=== PATIENT | female | born 1980 | race African-American/Black ===

== ENCOUNTER 2017-08-31 09:50 | Emergency (ER) | payer SELFPAY ==
[2017-08-31] MEDS ORDERED: Ketorolac 60 MG/2 ML SDV IM ONE (11:17)
--- NOTE | 2017-08-31 12:07 | EDM.PDOC ---
ED HPI GENERAL MEDICAL PROBLEM - General Chief Complaint: Back Pain or Injury Stated Complaint: [facility] Time Seen by Provider: 08/31/17 11:05 Source of Information: Reports: Patient History Limitations: Reports: No Limitations - History of Present Illness INITIAL COMMENTS - FREE TEXT/NARRATIVE: 36 year old female arrives via [place] ambulance service for evaluation and treatment of low back pain. Patient reports she has had low back pain for the last 3 months. She was seen in the [facility] clinic yesterday by Hanh Orosco. No imaging was done. Reports she was prescribe muscle relaxers and something for pain. She was also sent up with PT. Reports she tried the muscle relaxers and the pain medications, last took a medication around 0500. Patient also tried heat last night. 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 She was at work today walking around when she experienced worsening low back pain and numbness in her right foot. She states she could not sit due to the pain. No recent trauma to her back. No recent fevers. No saddle anesthesia, bowel or bladder incontinence. No pain to the left low back or numbness or tingling in the left leg. Patient reports a past medical history of bone spurs in her right foot. States she has never had anything like this before. Patient feels the medications are causing the numbness in the right foot. Right Back Pain Score (Numeric/FACES): 7 - Related Data Allergies Allergy/AdvReac Type Severity Reaction Status Date / Time No Known Allergies Allergy Verified 08/31/17 10:01 Home Meds: Home Meds Nortrel Control 1 tab PO DAILY 08/31/17 [History] Prednisone [IJD: predniSONE] 40 mg PO WITHBREAKFAST #10 tab 08/31/17 [Rx] Past Medical History - Past Health History Medical/Surgical History: Denies Medical/Surgical History Social & Family History - Family History Family Medical History: Noncontributory - Tobacco Use Smoking Status *Q: Never Smoker - Recreational Drug Use Recreational Drug Use: No ED ROS GENERAL - Review of Systems Review Of Systems: See Below Constitutional: Denies: Fever GI/Abdominal: Denies: Stool Incontinence : Denies: Incontinence Musculoskeletal: Reports: Back Pain (low back), Leg Pain (right) Neurological: Reports: Numbness (right foot), Tingling (right leg) ED EXAM,LOWER BACK PAIN/INJURY - Physical Exam Exam: See Below Exam Limited By: No Limitations General Appearance: Alert, WD/WN, No Apparent Distress, Obese Eye Exam: Bilateral Eye: Normal Inspection Ears: Normal External Exam Respiratory/Chest: No Respiratory Distress, Lungs Clear, Normal Breath Sounds Cardiovascular: Normal Peripheral Pulses, Regular Rate, Rhythm, No Murmur Back Exam: Normal Inspection, Decreased Range of Motion (unable to rotate, flex or extend at waiste due to pain), Paraspinal Tenderness (right sciatic notch) Extremities: Normal Inspection, Normal Range of Motion, Non-Tender Neurological: Alert, Normal Mood/Affect, Normal Dorsiflexion, Normal Plantar Flexion, Normal Gait, Straight Leg Raise (L) (causes pain to the low back), Straight Leg Raise (R) (causes pain to the low back). No: Saddle Anesthesia Psychiatric: Normal Affect, Normal Mood Skin Exam: Warm, Dry, Normal Color Course - Vital Signs Last Recorded V/S: Last Vital Signs Temp 36.3 C 08/31/17 09:58 Pulse 71 08/31/17 09:58 Resp 22 H 08/31/17 09:58 BP 138/61 08/31/17 09:58 Pulse Ox 99 08/31/17 09:58 - Orders/Labs/Meds Meds: Medications Discontinued Medications Generic Name Dose Route Start Last Admin Trade Name Justa PRN Reason Stop Dose Admin Ketorolac Tromethamine 60 mg 08/31/17 11:17 08/31/17 11:29 Toradol IM 08/31/17 11:18 60 mg ONETIME ONE Administration - Radiology Interpretation Free Text/Narrative:: xray of the lumbar spine shows no acute fractures or dislocations - Re-Assessments/Exams Free Text/Narrative Re-Assessment/Exam: 08/31/17 12:36 I reviewed the xray results with the patient. I feel she has a good plan of PT, heat, pain medication and muscle relaxers. Will try a short course of steroids to treat for sciatica. Follow-up with PCP. Discharge instructions as documented. Departure - Departure Time of Disposition: 12:41 Disposition: Home, Self-Care 01 Condition: Fair Clinical Impression: Sciatica - Discharge Information Prescriptions: Prednisone [IJD: predniSONE] 40 mg PO WITHBREAKFAST #10 tab Instructions: Sciatica, [id number] Referrals: Yumiko Orosco, [employer] [Ordering Only Provider] - Forms: ED Department Discharge Additional Instructions: take 2 tabs (40mg) PO daily x 5 days. [id number] Tylenol Motrin as needed for additional pain relief. continues taking your muscle relaxers and pain pills as needed for additional pain relief. Follow up with your physical therapy as planned. Follow-up with Hanh Orosco within 2 weeks for recheck of your symptoms. Please return to the ER if your symptoms change or worsen.
--- NOTE | 2017-08-31 14:02 | CR ---
Lumbar spine: AP, lateral and cone-down lateral views centered to the lumbosacral junction were obtained. Vertebral body heights and disc spaces are maintained. Slight endplate osteophytes are noted off of L5. Pedicles as well as visualized transverse and spinous processes are intact. Lucency is seen within the distal sacrum believed to be artifact. No additional abnormality is seen. Impression: 1. Slight endplate osteophytes off of L5. Presumed artifact within the distal sacrum on the lateral view. Diagnostic code #2
== END 2017-08-31 13:10 | disposition home or self-care (01) ==
LOC: JD.ED 09:50
DX: M54.41 Lumbago with sciatica, right side (principal); Z79.899 Other long term (current) drug therapy
CPT/HCPCS: 72100; 96372; 99284; J1885; 99283

== ENCOUNTER 2017-09-25 15:58 | Emergency (ER) | payer SELFPAY ==
--- NOTE | 2017-09-25 20:40 | EDM.PDOC ---
ED HPI GENERAL MEDICAL PROBLEM - General Chief Complaint: Lower Extremity Injury/Pain Stated Complaint: R LEG NUMBNESS/L LEG SWOLLEN Time Seen by Provider: 09/25/17 16:40 Source of Information: Reports: Patient History Limitations: Reports: No Limitations - History of Present Illness INITIAL COMMENTS - FREE TEXT/NARRATIVE: 36-year-old female presents for evaluation treatment of pain to the left calf. Patient reports that she has persistence symptoms 4 days ago. Reports erythema, increased warmth, pain and swelling from her knee down into her foot and ankle. She states she's tried elevating it but continues to have discomfort. Discomfort is primarily in the calf muscle. She denies any fevers, chills, chest pain, shortness of breath, lightheadedness, dizziness or syncope. Patient reports that she is dyspneic on exertion but states that this is all the time, possibly a little worse than normal. She reports some numbness into her right leg which has been present in for the last month. She is currently being worked up for sciatica. She is scheduled to have an MRI of her low back in the coming days. No recent travel. Previously on OCPs, has been off for several weeks. Duration: Day(s): (4) Location: Reports: Lower Extremity, Left Left Lower Leg Pain Score (Numeric/FACES): 5 - Related Data Allergies Allergy/AdvReac Type Severity Reaction Status Date / Time No Known Allergies Allergy Verified 09/25/17 16:15 Home Meds: Home Meds Acetaminophen/HYDROcodone [Orleans 325-5 MG] 1 tab PO Q4H PRN #10 tablet 09/25/17 [Rx] Ciprofloxacin [Ciprofloxacin HCl] 500 mg PO BID #20 tablet 09/25/17 [Rx] Doxycycline [Vibramycin] 100 mg PO Q12HR #20 cap 09/25/17 [Rx] Gabapentin [Neurontin] 100 mg PO TID 09/25/17 [History] Meloxicam 15 mg PO DAILY 09/25/17 [History] Orphenadrine [Norflex] 100 mg PO BID 09/25/17 [History] Past Medical History - Past Health History Medical/Surgical History: Denies Medical/Surgical History Other Neuro History: Histoy of back pain with sciatica on the right side - Past Surgical History Musculoskeletal Surgical History: Reports: Other (See Below) Social & Family History - Family History Family Medical History: Noncontributory - Tobacco Use Smoking Status *Q: Never Smoker - Caffeine Use Caffeine Use: Reports: Coffee - Recreational Drug Use Recreational Drug Use: No Review of Systems - Review of Systems Review Of Systems: See Below Respiratory: Reports: Other (dyspnea on exertion, possibly worsen than normal). Denies: Shortness of Breath Cardiovascular: Denies: Chest Pain, Lightheadedness, Syncope Musculoskeletal: Reports: Leg Pain (left lower leg pain and swelling). Denies: Back Pain Skin: Reports: Erythema (left lower leg), Other (increased warmth to the left lower leg) Neurological: Reports: Numbness (right leg), Difficulty Walking (pain to the left lower leg while walkign). Denies: Syncope ED EXAM, GENERAL - Physical Exam Exam: See Below Exam Limited By: No Limitations General Appearance: Alert, WD/WN, No Apparent Distress, Obese Respiratory/Chest: No Respiratory Distress, Lungs Clear, Normal Breath Sounds Cardiovascular: Normal Peripheral Pulses, Regular Rate, Rhythm, No Murmur Peripheral Pulses: 2+: Posterior Tibial (L), Posterior Tibial (R), Dorsalis Pedis (L), Dorsalis Pedis (R) Extremities: Normal Capillary Refill, Leg Pain (left calf muscle with palpation) , Increased Warmth (left lower leg). No: Breana's Sign Neurological: Alert, Oriented, Normal Cognition Psychiatric: Normal Affect, Normal Mood Skin Exam: Warm, Dry, Erythema (left lower leg) Course - Vital Signs Last Recorded V/S: Last Vital Signs Temp 36.9 C 09/25/17 16:20 Pulse 91 09/25/17 16:20 Resp 16 09/25/17 16:20 BP 145/69 H 09/25/17 16:20 Pulse Ox 98 09/25/17 16:20 - Orders/Labs/Meds Labs: Laboratory Tests 09/25/17 09/25/17 09/25/17 Range/Units 17:15 17:15 17:15 WBC 9.61 (3.98-10.04) K/mm3 RBC 3.90 L (3.98-5.22) M/mm3 Hgb 11.7 (11.2-15.7) gm/L Hct 35.3 (34.1-44.9) % MCV 90.5 (79.4-94.8) fl MCH 30.0 (25.6-32.2) pg MCHC 33.1 (32.2-35.5) g/dl RDW Std Deviation 40.8 (36.4-46.3) fL Plt Count 215 (182-369) K/mm3 MPV 10.3 (9.4-12.3) fl Neut % (Auto) 68.7 (34.0-71.1) % Lymph % (Auto) 21.0 (19.3-51.7) % [place] % (Auto) 4.4 L (4.7-12.5) % Eos % (Auto) 5.5 (0.7-5.8) Baso % (Auto) 0.2 (0.1-1.2) % Neut # (Auto) 6.60 H (1.56-6.13) K/mm3 Lymph # (Auto) 2.02 (1.18-3.74) K/mm3 [place] # (Auto) 0.42 H (0.24-0.36) K/mm3 Eos # (Auto) 0.53 H (0.04-0.36) K/mm3 Baso # (Auto) 0.02 (0.01-0.08) K/mm3 PT 10.0 (8.0-13.0) SECONDS INR 0.92 APTT 29 (22-36) SECONDS D-Dimer, Quantitative (0.19-0.59) mg/L Sodium 137 (136-145) mEq/L Potassium 3.6 (3.5-5.1) mEq/L Chloride 104 (98-107) mEq/L Carbon Dioxide 25 (21-32) mEq/L Anion Gap 11.6 (5-15) BUN 15 (7-18) mg/dL Creatinine 0.8 (0.55-1.02) mg/dL Est Cr Clr Drug Dosing 113.49 mL/min Estimated GFR (MDRD) > 60 (>60) mL/min BUN/Creatinine Ratio 18.8 H (14-18) Glucose 90 (74-106) mg/dL Calcium 8.7 (8.5-10.1) mg/dL Total Bilirubin 0.3 (0.2-1.0) mg/dL AST 19 (15-37) U/L ALT 17 (14-59) U/L Alkaline Phosphatase 74 (46-116) U/L C-Reactive Protein (<1.0) mg/dL Total Protein 7.2 (6.4-8.2) g/dl Albumin 3.0 L (3.4-5.0) g/dl Globulin 4.2 gm/dL Albumin/Globulin Ratio 0.7 L (1-2) 09/25/17 09/25/17 Range/Units 17:15 17:15 WBC (3.98-10.04) K/mm3 RBC (3.98-5.22) M/mm3 Hgb (11.2-15.7) gm/L Hct (34.1-44.9) % MCV (79.4-94.8) fl MCH (25.6-32.2) pg MCHC (32.2-35.5) g/dl RDW Std Deviation (36.4-46.3) fL Plt Count (182-369) K/mm3 MPV (9.4-12.3) fl Neut % (Auto) (34.0-71.1) % Lymph % (Auto) (19.3-51.7) % [place] % (Auto) (4.7-12.5) % Eos % (Auto) (0.7-5.8) Baso % (Auto) (0.1-1.2) % Neut # (Auto) (1.56-6.13) K/mm3 Lymph # (Auto) (1.18-3.74) K/mm3 [place] # (Auto) (0.24-0.36) K/mm3 Eos # (Auto) (0.04-0.36) K/mm3 Baso # (Auto) (0.01-0.08) K/mm3 PT (8.0-13.0) SECONDS INR APTT (22-36) SECONDS D-Dimer, Quantitative 11.62 H (0.19-0.59) mg/L Sodium (136-145) mEq/L Potassium (3.5-5.1) mEq/L Chloride (98-107) mEq/L Carbon Dioxide (21-32) mEq/L Anion Gap (5-15) BUN (7-18) mg/dL Creatinine (0.55-1.02) mg/dL Est Cr Clr Drug Dosing mL/min Estimated GFR (MDRD) (>60) mL/min BUN/Creatinine Ratio (14-18) Glucose (74-106) mg/dL Calcium (8.5-10.1) mg/dL Total Bilirubin (0.2-1.0) mg/dL AST (15-37) U/L ALT (14-59) U/L Alkaline Phosphatase (46-116) U/L C-Reactive Protein 9.9 H* (<1.0) mg/dL Total Protein (6.4-8.2) g/dl Albumin (3.4-5.0) g/dl Globulin gm/dL Albumin/Globulin Ratio (1-2) - Radiology Interpretation Free Text/Narrative:: ultrasound of the left lower leg impression per vrad: no evidence of DVT in the left lower leg CT Results Date: 09/25/17 - Re-Assessments/Exams Free Text/Narrative Re-Assessment/Exam: 09/25/17 19:45 I reviewed the labs and the ultrasound with the patient. It is suboptimal study. I'm still concerned that she has a DVT. Case discussed with Dr. Martinez. He has seen and evaluated the patient. Is recommending treatment for cellulitis. 09/25/17 20:[address] Virk. He has seen and evaluated the patient. Recommended treatment for cellulitis and close follow-up on Wednesday with PCP. May likely require repeat ultrasound. I will also start her on a 325mg aspirin. Discussed with the patient. As stated I am still concerned she has a DVT. Stressed importance of follow-up Wednesday. Discharge instructions as documented. Departure - Departure Time of Disposition: 20:36 Disposition: Home, Self-Care 01 Condition: Fair Clinical Impression: Cellulitis - Discharge Information Prescriptions: Doxycycline [Vibramycin] 100 mg PO Q12HR #20 cap Acetaminophen/HYDROcodone [Orleans 325-5 MG] 1 tab PO Q4H PRN #10 tablet PRN Reason: Pain Ciprofloxacin [Ciprofloxacin HCl] 500 mg PO BID #20 tablet Instructions: Cellulitis, Adult, [id number] Referrals: Yumiko Orosco, [employer] [Primary Care Provider] - Forms: ED Department Discharge Additional Instructions: Take the Orleans 1 tab every 4-6 hours as needed for severe pain. Do not drive or operate machinery within 12 hours of taking the Orleans. Orleans can be habit- forming, I recommend you take as few of these as needed to control your pain. Cipro Foxon 1 tab twice a day. Doxycycline 1 tab twice daily. Recommend starting a 325 mg aspirin daily. Recommend taking the antibiotics with food. Also recommend he start yogurt or probiotics to reduce side effects is up upset stomach, nausea and diarrhea. Follow-up with Hanh Orosco on Wednesday. You were may require a repeat ultrasound to ensure you do not have a DVT. Please return to the ER if your symptoms change or worsen. In particular would like to see you immediately for any chest pain, syncope or any difficulty breathing.
--- NOTE | 2017-09-26 17:27 | US ---
Left lower extremity deep venous ultrasound: Duplex and color flow imaging was obtained of the left common femoral, superficial femoral, popliteal, posterior tibial and peroneal veins. Right common femoral vein was also evaluated. Findings: Peroneal veins not visualized with technologist notes stating this is due to swelling and body habitus. There is subcutaneous edema seen within the left lower extremity. Normal phasic flow seen. Augmentation is lacking within the distal superficial femoral vein and popliteal vein as well as lack of compression. I do not see a definite venous thrombosis. Impression: 1. Subcutaneous edema. 2. Less than optimal study as noted above. No definite findings of deep venous thrombosis are seen within the left lower extremity or within the right common femoral vein. Note: Because of quality of the study if patient continues to remain symptomatic, follow-up study could be considered in 48 hours. Diagnostic code #2 I agree with preliminary report issued by [facility] ([facility] preliminary report dictated on 09/25/17, 7:28 PM Central Time)
== END 2017-09-25 20:52 | disposition home or self-care (01) ==
LOC: JD.ED 15:58
DX: L03.116 Cellulitis of left lower limb (principal); Z79.899 Other long term (current) drug therapy
CPT/HCPCS: 36415; 80053; 85025; 85379; 85610; 85730; 86140; 93971-26-LT; 93971-LT; 99284; 99284-25

== ENCOUNTER 2017-09-29 08:12 | Emergency (ER) | payer SELFPAY ==
[2017-09-29] MEDS ORDERED: Sodium Chloride 0.9% 500 ML IV ONE (09:40)
[2017-09-29] MEDS: Sodium Chloride 0.9% 10 ML Syringe FLUSH PRN ×2 (09:40→09:50)
[2017-09-29] MEDS ORDERED: Sodium Chloride 0.9% 10 ML Syringe FLUSH PRN (09:46)
[2017-09-29] MEDS ORDERED: Iopamidol 755 Mg/ML 100 ML Bottle IVPUSH ONE (09:46)
[2017-09-29] MEDS ORDERED: Iopamidol 755 MG/ML 50 ML Bottle IVPUSH ONE (09:46)
[2017-09-29] MEDS ORDERED: Sodium Chloride 0.9% 100 ML IV SCH (10:00)
--- NOTE | 2017-09-29 10:50 | CT ---
CT chest Technique: Multiple axial sections through the chest were obtained. Intravenous contrast was utilized. Study has been performed as a pulmonary angiogram protocol. Findings: Filling defects are seen within the right lower lobe segmental and subsegmental branches. This is compatible with pulmonary embolism. Smaller subsegmental pulmonary emboli are seen within the left base. Mediastinum and hilar regions show no adenopathy or mass. No pericardial thickening is seen. Small right sided pleural effusion is noted. Slight parenchymal density noted within the right lower lung either due to atelectasis or developing pulmonary infarct. Lungs otherwise are clear. Bone window settings were reviewed which shows slight degenerative change within the spine. Impression: 1. Findings compatible with pulmonary emboli within the segmental and subsegmental branches of the right lower lung and subsegmental branches within the left lower lung. 2. Small right sided pleural effusion. 3. Mild parenchymal density within the right lung base either due to atelectasis or pulmonary infarct. Diagnostic code #5
--- NOTE | 2017-09-29 12:28 | EDM.PDOC ---
ED HPI GENERAL MEDICAL PROBLEM - General Chief Complaint: Respiratory Problem Stated Complaint: SOB Time Seen by Provider: 09/29/17 08:55 Source of Information: Reports: Patient, RN Notes Reviewed - History of Present Illness INITIAL COMMENTS - FREE TEXT/NARRATIVE: 36-year-old female comes in with lower chest discomfort mild shortness of breath. She does have some mild discomfort with deep inspiration. Streaky somewhat complicated in that her left leg became swollen about 5-7 days ago. She was seen here in the ED 4 days ago. At that time she had too much pain to complete ultrasound of her left lower extremity. She was started on antibiotics for cellulitis. She presented to [facility] 2 days ago, ultrasound was done with resultant diagnosis of DVT left lower extremity. She was started on xarelto 15 mg bid. She's here today now because of the pulmonary symptoms. Not feel weak lightheaded or dizzy. She does not feel short of breath at this time. Left Leg Pain Score (Numeric/FACES): 6 Bilateral Chest Pain Score (Numeric/FACES): 6 - Related Data Allergies Allergy/AdvReac Type Severity Reaction Status Date / Time No Known Allergies Allergy Verified 09/29/17 08:30 Home Meds: Home Meds Ciprofloxacin [Ciprofloxacin HCl] 500 mg PO BID #20 tablet 09/25/17 [Rx] Doxycycline [Vibramycin] 100 mg PO Q12HR #20 cap 09/25/17 [Rx] Gabapentin [Neurontin] 100 mg PO TID 09/25/17 [History] Orphenadrine [Norflex] 100 mg PO BID 09/25/17 [History] Rivaroxaban [Xarelto] 15 mg PO BID 09/29/17 [History] Past Medical History - Past Health History Medical/Surgical History: Denies Medical/Surgical History HEENT History: Reports: Impaired Vision Other HEENT History: wears eyeglasses Musculoskeletal History: Reports: Back Pain, Chronic, Fracture Other Neuro History: Histoy of back pain with sciatica on the right side - Past Surgical History Musculoskeletal Surgical History: Reports: Other (See Below) Other Musculoskeletal Surgeries/Procedures:: body cast in childhood for slipped growth plate in L) hip. Social & Family History - Family History Family Medical History: Noncontributory - Tobacco Use Smoking Status *Q: Former Smoker Used Tobacco, but Quit: No Second Hand Smoke Exposure: No - Caffeine Use Caffeine Use: Reports: Coffee - Alcohol Use Days Per Week of Alcohol Use: 1 Number of Drinks Per Day: 1 Total Drinks Per Week: 1 - Recreational Drug Use Recreational Drug Use: No ED ROS GENERAL - Review of Systems Review Of Systems: See Below Constitutional: Denies: Fever, Chills, Diaphoresis HEENT: Denies: Throat Pain, Vertigo Respiratory: Reports: Pleuritic Chest Pain (mild last night and today). Denies : Shortness of Breath, Cough, Hemoptysis Cardiovascular: Reports: Chest Pain (mild with deep breathing) GI/Abdominal: Denies: Abdominal Pain, Nausea, Vomiting Musculoskeletal: Reports: Leg Pain (L lower leg) ED EXAM, GENERAL - Physical Exam Exam: See Below General Appearance: Alert, No Apparent Distress Eye Exam: Bilateral Eye: PERRL Throat/Mouth: Normal Inspection, Normal Oropharynx Head: Atraumatic. No: Facial Swelling Neck: Supple, Full Range of Motion Respiratory/Chest: No Respiratory Distress, Lungs Clear, Normal Breath Sounds Cardiovascular: Regular Rate, Rhythm GI/Abdominal: Soft, Non-Tender Back Exam: No: CVA Tenderness (L), CVA Tenderness (R) Extremities: Pedal Edema (there is diffuse swelling L lower leg), Leg Pain ( there is L calf tenderness), Increased Warmth (slight warmth L lower leg). No: Redness Neurological: Alert, Oriented, No Motor/Sensory Deficits Skin Exam: Warm, Dry, Normal Color EKG INTERPRETATION EKG Date: 09/29/17 Rhythm: NSR [place]: Normal P-Wave: Present QRS: Normal ST-T: Normal Course - Vital Signs Last Recorded V/S: Last Vital Signs Temp 96.5 F 09/29/17 08:30 Pulse 82 09/29/17 13:30 Resp 18 09/29/17 13:30 BP 123/56 L 09/29/17 13:30 Pulse Ox 99 09/29/17 13:30 - Orders/Labs/Meds Labs: Laboratory Tests 09/29/17 09/29/17 Range/Units 09:50 09:50 WBC 12.48 H (3.98-10.04) K/mm3 RBC 4.19 (3.98-5.22) M/mm3 Hgb 12.5 (11.2-15.7) gm/L Hct 38.1 (34.1-44.9) % MCV 90.9 (79.4-94.8) fl MCH 29.8 (25.6-32.2) pg MCHC 32.8 (32.2-35.5) g/dl RDW Std Deviation 40.4 (36.4-46.3) fL Plt Count 374 H (182-369) K/mm3 MPV 10.5 (9.4-12.3) fl Neut % (Auto) 78.1 H (34.0-71.1) % Lymph % (Auto) 12.7 L (19.3-51.7) % [place] % (Auto) 5.2 (4.7-12.5) % Eos % (Auto) 3.6 (0.7-5.8) Baso % (Auto) 0.2 (0.1-1.2) % Neut # (Auto) 9.76 H (1.56-6.13) K/mm3 Lymph # (Auto) 1.58 (1.18-3.74) K/mm3 [place] # (Auto) 0.65 H (0.24-0.36) K/mm3 Eos # (Auto) 0.45 H (0.04-0.36) K/mm3 Baso # (Auto) 0.02 (0.01-0.08) K/mm3 Sodium 136 (136-145) mEq/L Potassium 4.5 (3.5-5.1) mEq/L Chloride 102 (98-107) mEq/L Carbon Dioxide 28 (21-32) mEq/L Anion Gap 10.5 (5-15) BUN 8 (7-18) mg/dL Creatinine 0.8 (0.55-1.02) mg/dL Est Cr Clr Drug Dosing 113.49 mL/min Estimated GFR (MDRD) > 60 (>60) mL/min BUN/Creatinine Ratio 10.0 L (14-18) Glucose 105 (74-106) mg/dL Calcium 9.0 (8.5-10.1) mg/dL Total Bilirubin 0.3 (0.2-1.0) mg/dL AST 19 (15-37) U/L ALT 19 (14-59) U/L Alkaline Phosphatase 80 (46-116) U/L Total Protein 7.8 (6.4-8.2) g/dl Albumin 3.0 L (3.4-5.0) g/dl Globulin 4.8 gm/dL Albumin/Globulin Ratio 0.6 L (1-2) Meds: Medications Discontinued Medications Generic Name Dose Route Start Last Admin Trade Name Freq PRN Reason Stop Dose Admin Hydrocodone Bitart/Acetaminophen 1 tab 09/29/17 13:09 09/29/17 13:37 [place] 325-5 Mg PO 09/29/17 13:10 Not Given ONETIME ONE Sodium Chloride 500 mls @ 999 mls/hr 09/29/17 09:40 09/29/17 10:10 Normal Saline IV 09/29/17 10:10 999 mls/hr .BOLUS ONE Administration Sodium Chloride 100 mls @ 80 mls/hr 09/29/17 10:00 09/29/17 10:09 Normal Saline IV 80 mls/hr ASDIRECTED HAWA Administration Iopamidol 50 ml 09/29/17 09:46 09/29/17 10:10 Isovue-370 (76%) IVPUSH 09/29/17 09:47 50 ml ONETIME ONE Administration Iopamidol 100 ml 09/29/17 09:46 09/29/17 10:10 Isovue-370 (76%) IVPUSH 09/29/17 09:47 100 ml ONETIME ONE Administration Sodium Chloride 10 ml 09/29/17 09:40 09/29/17 09:50 Saline Flush FLUSH 10 ml ASDIRECTED PRN Administration Keep Vein Open Sodium Chloride 10 ml 09/29/17 09:46 09/29/17 10:09 Saline Flush FLUSH 10 ml ONETIME PRN Administration IV FLUSH - Re-Assessments/Exams Free Text/Narrative Re-Assessment/Exam: 09/29/17 12:59 Patient is already on eliquis 15 mg twice a day started 2 days ago. I did discuss with Dr Chiu, Hospitalist regarding need for bridge therapy. He states that with being on the eliquis she does not need bridge therapy, Vitals have been very stable, breathing comfortably, sats running 98 to 100 %. will continue with current Rx, pain medication as needed. Departure - Departure Time of Disposition: 13:28 Disposition: Home, Self-Care 01 Condition: Fair Clinical Impression: DVT (deep venous thrombosis) Qualifiers: DVT location: lower extremity Affected thrombotic vein of extremity: unspecified vein of extremity Chronicity: acute Laterality: left Qualified Code( s): I82.402 - Acute embolism and thrombosis of unspecified deep veins of left lower extremity Pulmonary emboli Qualifiers: Pulmonary embolism type: other Chronicity: acute - Discharge Information Instructions: Pulmonary Embolism, Deep Vein Thrombosis Referrals: Yumiko Orosco NURSERY MANAGER [Primary Care Provider] - Forms: ED Department Discharge Additional Instructions: Continue to rest and elevate legs as much as possible, use crutches as needed for when you do need to get out for her to ambulation. Tylenol for mild to moderate discomfort or hydrocodone if needed for more severe pain. Do not take Tylenol and hydrocodone at the same time. Follow-up clinic in about 5-7 days for recheck, call for appointment. Return to ED if symptoms worsening in any way.
[2017-09-29] MEDS ORDERED: Acetaminophen/HYDROcodone 325-5 MG Tab PO ONE (13:09)
== END 2017-09-29 13:40 | disposition home or self-care (01) ==
LOC: JD.ED 08:12
DX: I82.402 Acute embolism and thrombosis of unspecified deep veins of left lower extremity (principal); Z87.891 Personal history of nicotine dependence
CPT/HCPCS: 36415; 71275; 80053; 85025; 93005; 96360; 99285; J7030; J7040; J7050; Q9967; 93010; 99284-25